=== PATIENT | female | born 1980 | race African-American/Black ===

== ENCOUNTER 2025-02-12 11:08 | Emergency (ER) | payer OTHER ==
[2025-02-12 11:23] VITALS: BP 128/89; PULSE 76; RESP 18; TEMP 97.9; BMI 34.7
[2025-02-12] MEDS ORDERED: ACETAMINOPHEN 500 MG TABLET (FP) ONE (12:08)
[2025-02-12] MEDS: ACETAMINOPHEN 500 MG TABLET (FP) PO ONE (12:19)
[2025-02-12 13:04] LABS: URINE APPEARANCE SL CLOUDY; URINE BILIRUBIN NEGATIVE (NEGATIVE); URINE COLOR NEGATIVE; URINE GLUCOSE (UA) NEGATIVE (NEGATIVE); URINE KETONE NEGATIVE (NEGATIVE)
[2025-02-12 13:05] LABS: URINE LEUK ESTERASE TRACE (NEGATIVE); URINE NITRITE NEGATIVE (NEGATIVE); URINE PROTEIN NEGATIVE (NEGATIVE); URINE UROBILINOGEN 0.2 mg/dL (0.2-1.0)
== END 2025-02-12 13:49 | disposition home or self-care (01) ==
LOC: JERFT 11:08
DX: N76.0 Acute vaginitis (principal); M79.674 Pain in right toe(s)
CPT/HCPCS: 73660-TC-FY; 81003; 87070; 87086; 87205; 99284-25